=== PATIENT | male | born 1960 | race Caucasian/White ===

== ENCOUNTER 2017-06-08 11:43 | Emergency (ER) | payer BC ==
[~2017-06-08] VITALS: Ht 177.8 cm; Wt 101.2 kg
[~2017-06-08 11:43] MED LIST: PRAVASTATIN SOD20 MG PO
== END 2017-06-08 12:39 | disposition home or self-care (01) ==
LOC: CED 11:43 → CFTX 11:43
DX: T15.01XA Foreign body in cornea, right eye, initial encounter (principal); F17.210 Nicotine dependence, cigarettes, uncomplicated; Y92.009 Unspecified place in unspecified non-institutional (private) residence as the place of occurrence of the external cause
CPT/HCPCS: 65220; 99283